=== PATIENT | female | born 1935 | race Caucasian/White ===

== ENCOUNTER 2022-01-28 14:38 | Inpatient (IN) | payer OTHER, BC ==
[2022-01-28] MEDS ORDERED: methylPREDNISolone NA SUCC 125 MG/2 ML VIAL IVPUSH ONE (15:29)
[2022-01-28] MEDS ORDERED: ALBUTEROL SO4 2.5/IPRATROPIUM 0.5 INH SOL 3 ML VIAL.NEB. NEB ONE ×3 (16:00→20:57)
[2022-01-28] MEDS ORDERED: methylPREDNISolone NA SUCC 125 MG/2 ML VIAL ONE (16:01)
[2022-01-28] MEDS: ALBUTEROL SO4 2.5/IPRATROPIUM 0.5 INH SOL 3 ML VIAL.NEB. NEB SCH ×3 (16:06→16:36)
[2022-01-28 16:23] LABS: BASO % 0.4 % (0-2.0); HEMATOCRIT 47.1 % (32.4-45.2); HEMOGLOBIN 15.2 GM/dL (10.7-15.3); LYMPH % 8.8 % (8-40); MCH 31.2 pg (25.7-33.7); MCHC 32.3 g/dl (32.0-36.0); MEAN CELL VOLUME 96.5 fl (80-96); MEAN PLT VOLUME 8.7 fl (7.5-11.1); MONO % 9.5 % (3.8-10.2); NEUT % 80.3 % (42.8-82.8); PLATELET COUNT 287 10^3/uL (134-434); RBC 4.88 M/mm3 (3.60-5.2); RDW 13.7 % (11.6-15.6); WHITE BLOOD COUNT 15.5 K/mm3 (4.0-10.0)
[2022-01-28 16:34] LABS: INR 0.91 (0.83-1.09); PROTHROMBIN TIME (PATIENT) 10.4 SEC (9.7-13.0)
[2022-01-28] MEDS ORDERED: guaiFENesin/D-M SUGAR-FREE/ACLHOL-FREE 118 ML BOTTLE PO ONE ×2 (16:35→21:54)
[2022-01-28 16:37] LABS: ACTIVATED PTT 26.5 SECONDS (25.2-36.5)
[2022-01-28 17:03] LABS: BLOOD UREA NITROGEN 24.6 mg/dL (7-18); CALCIUM 10.3 mg/dL (8.5-10.1)
[2022-01-28 17:05] LABS: CREATININE 0.9 mg/dL (0.55-1.3)
[2022-01-28 17:07] LABS: BILIRUBIN,TOTAL 0.5 mg/dL (0.2-1); TOT PROT 7.2 g/dl (6.4-8.2)
[2022-01-28] MEDS ORDERED: SODIUM CHLORIDE 0.9% 500 ML INFUS.BAG IV ONE (17:26)
[2022-01-28] MEDS ORDERED: BENZOCAINE/MENTHOL 1 EACH LOZENGE MM PRN (21:54)
[2022-01-28] MEDS ORDERED: PHENOL 177 ML SPRAY BOTTLE MM PRN (23:17)
[2022-01-28] MEDS ORDERED: NYSTATIN POWDER 100,000 UNITS/GM - 15 GM TOPICAL POWDER TP PRN (23:19)
[2022-01-28] MEDS ORDERED: ALBUTEROL SO4 HFA INHALER IH ONE (23:22)
[2022-01-28] MEDS: ALBUTEROL SO4 HFA INHALER IH PRN (23:25)
[2022-01-29] MEDS: ALBUTEROL SO4 HFA INHALER IH PRN (03:30)
[2022-01-29 04:34] VITALS: BMI 28.2
[2022-01-29] MEDS ORDERED: VALSARTAN 40 MG TABLET PO SCH ×2 (06:00→10:00)
[2022-01-29 09:09] LABS: BASO % 0.2 % (0-2.0); EOS % 0.6 % (0-4.5); HEMATOCRIT 42.1 % (32.4-45.2); HEMOGLOBIN 13.7 GM/dL (10.7-15.3); LYMPH % 7.8 % (8-40); MCH 31.2 pg (25.7-33.7); MCHC 32.5 g/dl (32.0-36.0); MEAN CELL VOLUME 95.9 fl (80-96); MEAN PLT VOLUME 8.3 fl (7.5-11.1); MONO % 9.4 % (3.8-10.2); PLATELET COUNT 248 10^3/uL (134-434); RBC 4.39 M/mm3 (3.60-5.2); RDW 13.2 % (11.6-15.6); WHITE BLOOD COUNT 12.7 K/mm3 (4.0-10.0)
[2022-01-29 09:30] LABS: CALCIUM 9.5 mg/dL (8.5-10.1)
[2022-01-29 09:32] LABS: MAGNESIUM 2.3 mg/dL (1.8-2.4)
[2022-01-29] MEDS ORDERED: AZITHROMYCIN IVPB 500 MG/250 ML BAG IVPB ONE (09:32)
[2022-01-29 09:34] LABS: CREATININE 0.6 mg/dL (0.55-1.3)
[2022-01-29 09:55] LABS: PHOSPHOROUS 2.5 mg/dL (2.5-4.9)
[2022-01-29 09:59] LABS: N-TERMINAL BNP 446.5 pg/ml (5-450)
[2022-01-29] MEDS: BUDESONIDE/FORMETEROL FUMARATE 160/4.5 mcg INHALER IH SCH ×2 (10:21→22:16)
[2022-01-29] MEDS: MONTELUKAST NA 10 MG TABLET PO SCH (10:23)
[2022-01-29] MEDS: PANTOPRAZOLE 40 MG TABLET PO SCH (10:23)
[2022-01-29] MEDS: amLODIPine BESYLATE 5 MG TABLET (FP) PO SCH (10:23)
[2022-01-29] MEDS: methylPREDNISolone NA SUCC 40 MG/1 ML VIAL IVPUSH SCH ×2 (10:23→17:14)
[2022-01-29] MEDS: LOSARTAN POTASSIUM 50 MG TABLET PO SCH (10:23)
[2022-01-29] MEDS: ENOXAPARIN NA (PORCINE) 40 MG/0.4 ML DISP.SYRIN SQ SCH (10:24)
[2022-01-29] MEDS: ALBUTEROL SO4 2.5/IPRATROPIUM 0.5 INH SOL 3 ML VIAL.NEB. NEB SCH ×3 (12:00→19:42)
[2022-01-29] MEDS: DOCUSATE SODIUM 100 MG CAPSULE (FP) PO SCH (22:44)
[2022-01-30] MEDS: methylPREDNISolone NA SUCC 40 MG/1 ML VIAL IVPUSH SCH ×3 (01:46→17:35)
[2022-01-30] MEDS: guaiFENesin/D-M SUGAR-FREE/ACLHOL-FREE 118 ML BOTTLE PO PRN ×2 (06:47→15:09)
[2022-01-30] MEDS: ALBUTEROL SO4 2.5/IPRATROPIUM 0.5 INH SOL 3 ML VIAL.NEB. NEB SCH ×4 (07:31→20:10)
[2022-01-30] MEDS: LOSARTAN POTASSIUM 50 MG TABLET PO SCH (09:08)
[2022-01-30] MEDS: amLODIPine BESYLATE 5 MG TABLET (FP) PO SCH (09:08)
[2022-01-30] MEDS: ACETAMINOPHEN 325 MG TABLET (FP) PO PRN ×2 (09:08→14:56)
[2022-01-30] MEDS: MONTELUKAST NA 10 MG TABLET PO SCH (09:10)
[2022-01-30] MEDS: PANTOPRAZOLE 40 MG TABLET PO SCH (09:10)
[2022-01-30] MEDS: ENOXAPARIN NA (PORCINE) 40 MG/0.4 ML DISP.SYRIN SQ SCH (09:10)
[2022-01-30] MEDS: BUDESONIDE/FORMETEROL FUMARATE 160/4.5 mcg INHALER IH SCH ×2 (09:14→21:13)
[2022-01-30] MEDS: AZITHROMYCIN IVPB 500 MG/250 ML BAG IVPB SCH (09:20)
[2022-01-30 10:22] LABS: BASO % 0.1 % (0-2.0); HEMOGLOBIN 14.7 GM/dL (10.7-15.3); LYMPH % 4.6 % (8-40); MCH 30.9 pg (25.7-33.7); MCHC 31.9 g/dl (32.0-36.0); MEAN CELL VOLUME 96.7 fl (80-96); MEAN PLT VOLUME 8.6 fl (7.5-11.1); MONO % 7.2 % (3.8-10.2); NEUT % 88.1 % (42.8-82.8); PLATELET COUNT 285 10^3/uL (134-434); RBC 4.76 M/mm3 (3.60-5.2); RDW 13.4 % (11.6-15.6)
[2022-01-30 10:44] LABS: BLOOD UREA NITROGEN 23.5 mg/dL (7-18); CALCIUM 10.4 mg/dL (8.5-10.1)
[2022-01-30 10:49] LABS: CREATININE 0.9 mg/dL (0.55-1.3)
[2022-01-30] MEDS: POLYETHYLENE GLYCOL (HEALTHYLAX) 3350 17 GM PACKET PO PRN (14:56)
[2022-01-30 16:10] LABS: SARS-CoV-2 NAA Not Detected (Not Detected)
[2022-01-30] MEDS: INSULIN SLIDING SCALE (NOVOLOG) 1 VIAL SQ SCH (16:39)
[2022-01-30] MEDS: DOCUSATE SODIUM 100 MG CAPSULE (FP) PO SCH (21:12)
[2022-01-31] MEDS: methylPREDNISolone NA SUCC 40 MG/1 ML VIAL IVPUSH SCH ×3 (02:03→17:10)
[2022-01-31] MEDS: INSULIN SLIDING SCALE (NOVOLOG) 1 VIAL SQ SCH ×3 (06:18→16:31)
[2022-01-31] MEDS: ALBUTEROL SO4 2.5/IPRATROPIUM 0.5 INH SOL 3 ML VIAL.NEB. NEB SCH ×4 (08:13→19:41)
[2022-01-31 08:56] LABS: BASO % 0.1 % (0-2.0); HEMATOCRIT 45.1 % (32.4-45.2); HEMOGLOBIN 14.6 GM/dL (10.7-15.3); LYMPH % 4.7 % (8-40); MCH 31.1 pg (25.7-33.7); MCHC 32.4 g/dl (32.0-36.0); MEAN PLT VOLUME 8.4 fl (7.5-11.1); MONO % 6.8 % (3.8-10.2); NEUT % 88.4 % (42.8-82.8); PLATELET COUNT 288 10^3/uL (134-434); RDW 13.3 % (11.6-15.6); WHITE BLOOD COUNT 13.1 K/mm3 (4.0-10.0)
[2022-01-31 09:34] LABS: CALCIUM 10.3 mg/dL (8.5-10.1)
[2022-01-31 09:35] LABS: BLOOD UREA NITROGEN 26.5 mg/dL (7-18)
[2022-01-31 09:38] LABS: CREATININE 0.8 mg/dL (0.55-1.3)
[2022-01-31] MEDS: amLODIPine BESYLATE 5 MG TABLET (FP) PO SCH (10:06)
[2022-01-31] MEDS: ENOXAPARIN NA (PORCINE) 40 MG/0.4 ML DISP.SYRIN SQ SCH (10:06)
[2022-01-31] MEDS: PANTOPRAZOLE 40 MG TABLET PO SCH (10:06)
[2022-01-31] MEDS: LOSARTAN POTASSIUM 50 MG TABLET PO SCH (10:06)
[2022-01-31] MEDS: MONTELUKAST NA 10 MG TABLET PO SCH (10:06)
[2022-01-31] MEDS: BUDESONIDE/FORMETEROL FUMARATE 160/4.5 mcg INHALER IH SCH ×2 (10:07→21:31)
[2022-01-31] MEDS: AZITHROMYCIN IVPB 500 MG/250 ML BAG IVPB SCH (10:07)
[2022-01-31] MEDS: POLYETHYLENE GLYCOL (HEALTHYLAX) 3350 17 GM PACKET PO PRN (10:10)
[2022-01-31] MEDS: DOCUSATE SODIUM 100 MG CAPSULE (FP) PO SCH (21:28)
[2022-02-01] MEDS: methylPREDNISolone NA SUCC 40 MG/1 ML VIAL IVPUSH SCH ×3 (01:26→21:07)
[2022-02-01] MEDS: INSULIN SLIDING SCALE (NOVOLOG) 1 VIAL SQ SCH ×3 (06:31→16:33)
[2022-02-01] MEDS: ALBUTEROL SO4 2.5/IPRATROPIUM 0.5 INH SOL 3 ML VIAL.NEB. NEB SCH ×4 (08:20→20:15)
[2022-02-01] MEDS: AZITHROMYCIN IVPB 500 MG/250 ML BAG IVPB SCH (09:41)
[2022-02-01] MEDS: MONTELUKAST NA 10 MG TABLET PO SCH (09:43)
[2022-02-01] MEDS: LOSARTAN POTASSIUM 50 MG TABLET PO SCH (09:43)
[2022-02-01] MEDS: amLODIPine BESYLATE 5 MG TABLET (FP) PO SCH (09:43)
[2022-02-01] MEDS: ENOXAPARIN NA (PORCINE) 40 MG/0.4 ML DISP.SYRIN SQ SCH ×2 (09:43→11:51)
[2022-02-01] MEDS: PANTOPRAZOLE 40 MG TABLET PO SCH (09:43)
[2022-02-01] MEDS: BUDESONIDE/FORMETEROL FUMARATE 160/4.5 mcg INHALER IH SCH ×2 (09:46→21:16)
[2022-02-01] MEDS: POLYETHYLENE GLYCOL (HEALTHYLAX) 3350 17 GM PACKET PO PRN ×2 (11:31→21:05)
[2022-02-01] MEDS: ACETAMINOPHEN 325 MG TABLET (FP) PO PRN (21:04)
[2022-02-01] MEDS: DOCUSATE SODIUM 100 MG CAPSULE (FP) PO SCH (21:05)
[2022-02-02] MEDS: INSULIN SLIDING SCALE (NOVOLOG) 1 VIAL SQ SCH ×3 (06:49→16:48)
[2022-02-02] MEDS: ALBUTEROL SO4 2.5/IPRATROPIUM 0.5 INH SOL 3 ML VIAL.NEB. NEB SCH ×4 (08:29→20:22)
[2022-02-02] MEDS: LOSARTAN POTASSIUM 50 MG TABLET PO SCH (10:45)
[2022-02-02] MEDS: PANTOPRAZOLE 40 MG TABLET PO SCH (10:45)
[2022-02-02] MEDS: MONTELUKAST NA 10 MG TABLET PO SCH (10:45)
[2022-02-02] MEDS: amLODIPine BESYLATE 5 MG TABLET (FP) PO SCH (10:45)
[2022-02-02] MEDS: ENOXAPARIN NA (PORCINE) 40 MG/0.4 ML DISP.SYRIN SQ SCH (10:45)
[2022-02-02] MEDS: BUDESONIDE/FORMETEROL FUMARATE 160/4.5 mcg INHALER IH SCH ×2 (10:46→21:14)
[2022-02-02] MEDS: methylPREDNISolone NA SUCC 40 MG/1 ML VIAL IVPUSH SCH ×2 (10:46→21:13)
[2022-02-02] MEDS: POLYETHYLENE GLYCOL (HEALTHYLAX) 3350 17 GM PACKET PO PRN (10:58)
[2022-02-02] MEDS: guaiFENesin/D-M SUGAR-FREE/ACLHOL-FREE 118 ML BOTTLE PO PRN (10:58)
[2022-02-02 13:57] LABS: HEMATOCRIT 48.7 % (32.4-45.2); HEMOGLOBIN 15.6 GM/dL (10.7-15.3); MCHC 32.1 g/dl (32.0-36.0); MEAN CELL VOLUME 96.8 fl (80-96); PLATELET COUNT 332 10^3/uL (134-434); RBC 5.03 M/mm3 (3.60-5.2); RDW 13.5 % (11.6-15.6); WHITE BLOOD COUNT 14.2 K/mm3 (4.0-10.0)
[2022-02-02] MEDS: AZITHROMYCIN IVPB 500 MG/250 ML BAG IVPB SCH (14:07)
[2022-02-02 14:13] LABS: CALCIUM 10.7 mg/dL (8.5-10.1)
[2022-02-02 14:16] LABS: CREATININE 0.9 mg/dL (0.55-1.3)
[2022-02-02 14:54] LABS: ANISOCYTOSIS 1+; MACROCYTOSIS 0
[2022-02-02] MEDS: DOCUSATE SODIUM 100 MG CAPSULE (FP) PO SCH (21:13)
[2022-02-03] MEDS: INSULIN SLIDING SCALE (NOVOLOG) 1 VIAL SQ SCH ×3 (06:13→16:23)
[2022-02-03] MEDS: ALBUTEROL SO4 2.5/IPRATROPIUM 0.5 INH SOL 3 ML VIAL.NEB. NEB SCH ×4 (07:15→20:26)
[2022-02-03] MEDS: ENOXAPARIN NA (PORCINE) 40 MG/0.4 ML DISP.SYRIN SQ SCH (09:49)
[2022-02-03] MEDS: amLODIPine BESYLATE 5 MG TABLET (FP) PO SCH (09:50)
[2022-02-03] MEDS: LOSARTAN POTASSIUM 50 MG TABLET PO SCH (09:50)
[2022-02-03] MEDS: guaiFENesin/D-M SUGAR-FREE/ACLHOL-FREE 118 ML BOTTLE PO PRN (09:50)
[2022-02-03] MEDS: PANTOPRAZOLE 40 MG TABLET PO SCH (09:50)
[2022-02-03] MEDS: MONTELUKAST NA 10 MG TABLET PO SCH (09:50)
[2022-02-03] MEDS: POLYETHYLENE GLYCOL (HEALTHYLAX) 3350 17 GM PACKET PO PRN (09:51)
[2022-02-03] MEDS: methylPREDNISolone NA SUCC 40 MG/1 ML VIAL IVPUSH SCH ×2 (09:51→21:06)
[2022-02-03] MEDS: BUDESONIDE/FORMETEROL FUMARATE 160/4.5 mcg INHALER IH SCH ×2 (09:52→21:07)
[2022-02-03] MEDS ORDERED: CEFTRIAXONE 1 GM in DEXTROSE 5%-WATER - 50 ML IVPB SCH (14:45)
[2022-02-03] MEDS ORDERED: cefTRIAXone SODIUM 1 GM VIAL ONE (14:47)
[2022-02-03] MEDS: CEFTRIAXONE 1 GM in DEXTROSE 5%-WATER - 50 ML IVPB SCH (14:49)
[2022-02-03] MEDS: DOCUSATE SODIUM 100 MG CAPSULE (FP) PO SCH (21:06)
[2022-02-04] MEDS: INSULIN SLIDING SCALE (NOVOLOG) 1 VIAL SQ SCH ×2 (06:29→11:29)
[2022-02-04] MEDS ORDERED: MELATONIN 5 MG TABLETS PO PRN (08:46)
[2022-02-04] MEDS: ALBUTEROL SO4 2.5/IPRATROPIUM 0.5 INH SOL 3 ML VIAL.NEB. NEB SCH ×3 (09:01→15:52)
[2022-02-04] MEDS ORDERED: cefTRIAXone SODIUM 1 GM VIAL ONE (09:07)
[2022-02-04] MEDS ORDERED: DEXTROSE 5%-WATER - 50 ML IVPB ONE (09:08)
[2022-02-04 09:35] VITALS: TEMP 97.9
[2022-02-04] MEDS: CEFTRIAXONE 1 GM in DEXTROSE 5%-WATER - 50 ML IVPB SCH (09:36)
[2022-02-04] MEDS: LOSARTAN POTASSIUM 50 MG TABLET PO SCH (09:36)
[2022-02-04] MEDS: PANTOPRAZOLE 40 MG TABLET PO SCH (09:36)
[2022-02-04] MEDS: ENOXAPARIN NA (PORCINE) 40 MG/0.4 ML DISP.SYRIN SQ SCH (09:36)
[2022-02-04] MEDS: amLODIPine BESYLATE 5 MG TABLET (FP) PO SCH (09:36)
[2022-02-04] MEDS: MONTELUKAST NA 10 MG TABLET PO SCH (09:36)
[2022-02-04] MEDS: methylPREDNISolone NA SUCC 40 MG/1 ML VIAL IVPUSH SCH (09:36)
[2022-02-04] MEDS: BUDESONIDE/FORMETEROL FUMARATE 160/4.5 mcg INHALER IH SCH (09:39)
[2022-02-04] MEDS: guaiFENesin/D-M SUGAR-FREE/ACLHOL-FREE 118 ML BOTTLE PO PRN (10:00)
[2022-02-04] MEDS: POLYETHYLENE GLYCOL (HEALTHYLAX) 3350 17 GM PACKET PO PRN (10:00)
[2022-02-04 10:04] LABS: BASO % 0.1 % (0-2.0); EOS % 0.3 % (0-4.5); HEMOGLOBIN 15.7 GM/dL (10.7-15.3); LYMPH % 16.7 % (8-40); MCH 30.9 pg (25.7-33.7); MCHC 32.6 g/dl (32.0-36.0); MEAN CELL VOLUME 94.7 fl (80-96); MEAN PLT VOLUME 8.3 fl (7.5-11.1); MONO % 7.6 % (3.8-10.2); NEUT % 75.3 % (42.8-82.8); PLATELET COUNT 299 10^3/uL (134-434); RBC 5.06 M/mm3 (3.60-5.2); RDW 13.5 % (11.6-15.6); WHITE BLOOD COUNT 11.6 K/mm3 (4.0-10.0)
[2022-02-04 10:32] LABS: ALBUMIN 3.3 g/dl (3.4-5.0); BLOOD UREA NITROGEN 23.8 mg/dL (7-18)
[2022-02-04 10:35] LABS: CREATININE 0.7 mg/dL (0.55-1.3)
[2022-02-04 10:36] LABS: BILIRUBIN,TOTAL 0.5 mg/dL (0.2-1); TOT PROT 6.1 g/dl (6.4-8.2)
[2022-02-04 14:31] VITALS: BP 128/96; PULSE 81
== END 2022-02-04 16:26 | disposition home or self-care (01) | DRG 202 ==
LOC: JER 14:38 → JERBED 19:59 → J6S 01-29 02:56
PROVIDERS: ADMIT Hospitalist; ATTEND Internal Medicine
DX: J45.901 Unspecified asthma with (acute) exacerbation (principal); J98.11 Atelectasis; J20.9 Acute bronchitis, unspecified; I10 Essential (primary) hypertension
CPT/HCPCS: 0241U-QW; 36415; 71045-TC-FY; 71046-TC-FY; 80048; 80053; 83036; 83735; 83880; 84100; 85025; 85610; 85730; 87070; 87205; 93005; 93010; 94010; 94640; 94761; 99285-25; C9803-CS; U0003; U0005

== ENCOUNTER 2022-03-29 08:55 | Emergency (ER) | payer OTHER, BC ==
[2022-03-29 09:13] VITALS: TEMP 97.8; BMI 27.4
[2022-03-29] MEDS ORDERED: ACETAMINOPHEN 325 MG TABLET (FP) PO ONE (11:15)
[2022-03-29] MEDS ORDERED: SODIUM CHLORIDE 500 ML IV STA (11:18)
[2022-03-29 11:49] LABS: BASO % 0.8 % (0-2.0); HEMATOCRIT 45.4 % (32.4-45.2); HEMOGLOBIN 14.9 GM/dL (10.7-15.3); LYMPH % 17.7 % (8-40); MCH 31.7 pg (25.7-33.7); MCHC 32.9 g/dl (32.0-36.0); MEAN CELL VOLUME 96.3 fl (80-96); MEAN PLT VOLUME 8.1 fl (7.5-11.1); MONO % 9.3 % (3.8-10.2); NEUT % 70.2 % (42.8-82.8); PLATELET COUNT 237 10^3/uL (134-434); RBC 4.71 M/mm3 (3.60-5.2); RDW 13.7 % (11.6-15.6); WHITE BLOOD COUNT 7.7 K/mm3 (4.0-10.0)
[2022-03-29 12:21] LABS: ALBUMIN 3.9 g/dl (3.4-5.0); BLOOD UREA NITROGEN 13.5 mg/dL (7-18); CALCIUM 10.6 mg/dL (8.5-10.1)
[2022-03-29 12:24] LABS: CREATININE 0.6 mg/dL (0.55-1.3)
[2022-03-29 12:26] LABS: BILIRUBIN,TOTAL 0.8 mg/dL (0.2-1); TOT PROT 6.7 g/dl (6.4-8.2)
[2022-03-29] MEDS ORDERED: ALBUTEROL SO4 2.5/IPRATROPIUM 0.5 INH SOL 3 ML VIAL.NEB. NEB SCH ×3 (12:39→14:00)
[2022-03-29] MEDS ORDERED: ALBUTEROL SO4 2.5/IPRATROPIUM 0.5 INH SOL 3 ML VIAL.NEB. NEB ONE (12:42)
[2022-03-29 14:14] LABS: EPI CELLS 29 /uL (0-25.1); HYALINE CASTS 2 /uL (0-3.1); URINE APPEARANCE CLEAR; URINE BACTERIA 21 /uL (0-1359); URINE BILIRUBIN NEGATIVE (NEGATIVE); URINE COLOR YELLOW; URINE GLUCOSE (UA) NEGATIVE (NEGATIVE); URINE KETONE NEGATIVE (NEGATIVE); URINE LEUK ESTERASE TRACE (NEGATIVE); URINE NITRITE NEGATIVE (NEGATIVE); URINE PROTEIN NEGATIVE (NEGATIVE); URINE RBC 6 /uL (0-23.9); URINE UROBILINOGEN 0.2 mg/dL (0.2-1.0); URINE WBC 20 /uL (0-25.8)
[2022-03-29 14:38] LABS: VENOUS BASE EXCESS -0.9 mmol/L (-2-2); VENOUS O2 SATURATION 40.3 % (70-80); VENOUS PCO2 50.3 mmHg (38-52); VENOUS PH 7.328 (7.310-7.410)
[2022-03-29 17:26] VITALS: BP 128/87; PULSE 84
== END 2022-03-29 17:44 | disposition home or self-care (01) ==
LOC: JER 08:55
PROC: 3E0337Z Introduction of Electrolytic and Water Balance Substance into Peripheral Vein, Percutaneous Approach (ICD-10-PCS; principal; 2022-03-29)
PROC: 3E0F7GC Introduction of Other Therapeutic Substance into Respiratory Tract, Via Natural or Artificial Opening (ICD-10-PCS; 2022-03-29)
DX: R10.84 Generalized abdominal pain (principal); K59.00 Constipation, unspecified
CPT/HCPCS: 0241U-QW; 36415; 71045-TC-FY; 74177-TC; 80053; 81003; 82803; 83605; 83690; 84484; 85025; 93005; 93010; 99285-25

== ENCOUNTER 2023-09-28 08:12 | Emergency (ER) | payer OTHER, BC ==
[2023-09-28 08:26] VITALS: BMI 28.1
[2023-09-28] MEDS ORDERED: ALBUTEROL SO4 2.5/IPRATROPIUM 0.5 INH SOL 3 ML VIAL.NEB. NEB ONE ×2 (08:58→10:34)
[2023-09-28] MEDS: ALBUTEROL SO4 2.5/IPRATROPIUM 0.5 INH SOL 3 ML VIAL.NEB. NEB SCH ×4 (09:03→09:50)
[2023-09-28] MEDS ORDERED: methylPREDNISolone NA SUCC 125 MG/2 ML VIAL IVPUSH ONE (09:17)
[2023-09-28] MEDS ORDERED: methylPREDNISolone NA SUCC 125 MG/2 ML VIAL ONE (09:28)
[2023-09-28 09:36] LABS: BASO % 0.9 % (0-2.0); EOS % 2.7 % (0-4.5); HEMATOCRIT 43.4 % (32.4-45.2); HEMOGLOBIN 14.1 GM/dL (10.7-15.3); LYMPH % 20.4 % (8-40); MCHC 32.5 g/dl (32.0-36.0); MEAN CELL VOLUME 95.4 fl (80-96); MEAN PLT VOLUME 7.9 fl (7.5-11.1); MONO % 10.7 % (3.8-10.2); NEUT % 65.3 % (42.8-82.8); PLATELET COUNT 290 10^3/uL (134-434); RBC 4.55 M/mm3 (3.60-5.2); RDW 13.4 % (11.6-15.6); WHITE BLOOD COUNT 6.9 K/mm3 (4.0-10.0)
[2023-09-28 09:38] LABS: INR 1.02 (0.83-1.09); PROTHROMBIN TIME (PATIENT) 11.8 SEC (9.7-13.0)
[2023-09-28 09:40] LABS: ACTIVATED PTT 30.9 SECONDS (25.2-36.5)
[2023-09-28 09:56] LABS: POTASSIUM 5.1 mmol/L (3.5-5.1)
[2023-09-28 09:59] LABS: ALBUMIN 3.2 g/dl (3.4-5.0); BLOOD UREA NITROGEN 14.2 mg/dL (7-18); MAGNESIUM 2.2 mg/dL (1.8-2.4); VENOUS BASE EXCESS 2.9 mmol/L (-2-2); VENOUS PCO2 54.1 mmHg (38-52); VENOUS PH 7.357 (7.310-7.410)
[2023-09-28 10:02] LABS: CREATININE 0.6 mg/dL (0.55-1.3)
[2023-09-28 10:04] LABS: BILIRUBIN,TOTAL 0.5 mg/dL (0.2-1); TOT PROT 6.2 g/dl (6.4-8.2)
[2023-09-28 11:37] LABS: EPI CELLS >36 /uL (0-25.1); HYALINE CASTS 1 /uL (0-3.1); PH,URINE 7.5 (5.0-8.0); URINE APPEARANCE CLEAR; URINE BACTERIA 319 /uL (0-1359); URINE BILIRUBIN NEGATIVE (NEGATIVE); URINE COLOR YELLOW; URINE GLUCOSE (UA) NEGATIVE (NEGATIVE); URINE KETONE TRACE (NEGATIVE); URINE LEUK ESTERASE TRACE (NEGATIVE); URINE NITRITE NEGATIVE (NEGATIVE); URINE PROTEIN NEGATIVE (NEGATIVE); URINE RBC 11 /uL (0-23.9); URINE UROBILINOGEN 0.2 mg/dL (0.2-1.0); URINE WBC 13 /uL (0-25.8)
[2023-09-28 12:11] VITALS: BP 138/59; PULSE 59; RESP 18; TEMP 98.7
== END 2023-09-28 12:12 | disposition home or self-care (01) ==
LOC: JER 08:12
PROC: 3E033GC Introduction of Other Therapeutic Substance into Peripheral Vein, Percutaneous Approach (ICD-10-PCS; principal; 2023-09-28)
PROC: 3E0F7GC Introduction of Other Therapeutic Substance into Respiratory Tract, Via Natural or Artificial Opening (ICD-10-PCS; 2023-09-28)
DX: R07.9 Chest pain, unspecified (principal); R00.2 Palpitations; R06.02 Shortness of breath; R35.0 Frequency of micturition; J45.901 Unspecified asthma with (acute) exacerbation; Z20.822 Contact with and (suspected) exposure to COVID-19
CPT/HCPCS: 0241U-QW; 36415; 71045-TC-FY; 80053; 81003; 82803; 83735; 84439; 84443; 84484; 85025; 85610; 85730; 87086; 93005; 93010; 99285-25

== ENCOUNTER 2023-12-27 10:43 | Inpatient (IN) | payer OTHER, BC ==
[2023-12-27] MEDS ORDERED: ALBUTEROL SO4 2.5/IPRATROPIUM 0.5 INH SOL 3 ML VIAL.NEB. NEB ONE ×2 (11:41→21:10)
[2023-12-27] MEDS: ALBUTEROL SO4 2.5/IPRATROPIUM 0.5 INH SOL 3 ML VIAL.NEB. NEB SCH (11:48)
[2023-12-27 13:35] LABS: HEMOGLOBIN 14.3 GM/dL (10.7-15.3); MCH 30.5 pg (25.7-33.7); MCHC 32.5 g/dl (32.0-36.0); MEAN PLT VOLUME 7.8 fl (7.5-11.1); PLATELET COUNT 277 10^3/uL (134-434); RBC 4.68 M/mm3 (3.60-5.2); RDW 13.9 % (11.6-15.6); WHITE BLOOD COUNT 8.6 K/mm3 (4.0-10.0)
[2023-12-27] MEDS ORDERED: MELATONIN 5 MG TABLETS PO PRN (13:40)
[2023-12-27] MEDS ORDERED: PANTOPRAZOLE 40 MG TABLET PO ONE (13:56)
[2023-12-27] MEDS ORDERED: HEPARIN NA (PORCINE) 5,000 UNITS/ML 1ML VIAL ONE ×2 (13:57→21:09)
[2023-12-27 13:58] LABS: ALBUMIN 3.7 g/dl (3.4-5.0); BLOOD UREA NITROGEN 13.4 mg/dL (7-18); CALCIUM 10.4 mg/dL (8.5-10.1)
[2023-12-27 14:01] LABS: CREATININE 0.8 mg/dL (0.55-1.3)
[2023-12-27 14:03] LABS: BILIRUBIN,TOTAL 0.4 mg/dL (0.2-1); TOT PROT 6.8 g/dl (6.4-8.2)
[2023-12-27 14:04] LABS: ANISOCYTOSIS 0; HELMET CELLS 0; HOWELL-JOLLY BODIES 0; MACROCYTOSIS 0; OVALOCYTE 0; ROULEAU 0; SICKELED CELLS 0; TARGET CELLS 0; TEAR DROP CELLS 0; TOXIC GRANULATION 0
[2023-12-27 14:06] LABS: N-TERMINAL BNP 585.4 pg/ml (5-450)
[2023-12-27] MEDS: HEPARIN NA (PORCINE) 5,000 UNITS/ML 1ML VIAL SQ SCH (14:16)
[2023-12-27] MEDS: guaiFENesin 600 MG TABLET.ER (FP) PO SCH (14:16)
[2023-12-27] MEDS: PANTOPRAZOLE 40 MG TABLET PO SCH (14:17)
[2023-12-27] MEDS: D5-1/2NS+10 MEQ KCL - 10 MEQ/1,000 ML INFUS.BAG IV SCH (14:56)
[2023-12-27] MEDS: NYSTATIN POWDER 100,000 UNITS/GM - 15 GM TOPICAL POWDER TP SCH (14:56)
[2023-12-27] MEDS ORDERED: AZITHROMYCIN 250 MG TABLET ONE (21:09)
[2023-12-27] MEDS ORDERED: ACETAMINOPHEN 325 MG TABLET (FP) ONE (21:19)
[2023-12-27] MEDS: ACETAMINOPHEN 325 MG TABLET (FP) PO ONE (21:32)
[2023-12-27] MEDS: AZITHROMYCIN 250 MG TABLET PO ONE (21:32)
[2023-12-28] MEDS: BENZOCAINE/MENTH/CETYLPYRD CL 1 EACH LOZENGE MM PRN (01:46)
[2023-12-28] MEDS: ALBUTEROL SO4 2.5/IPRATROPIUM 0.5 INH SOL 3 ML VIAL.NEB. NEB PRN (02:17)
[2023-12-28 03:45] VITALS: BMI 29.2
[2023-12-28] MEDS: methylPREDNISolone NA SUCC 125 MG/2 ML VIAL IVPB SCH (09:12)
[2023-12-28] MEDS: LOSARTAN POTASSIUM 50 MG TABLET PO SCH (09:16)
[2023-12-28] MEDS: amLODIPine BESYLATE 10 MG TABLET (FP) PO SCH (09:16)
[2023-12-28] MEDS: MONTELUKAST NA 10 MG TABLET PO SCH (09:17)
[2023-12-28] MEDS: metoPROLOL SUCCINATE 25 MG TAB.SR.24H (FP) PO SCH (09:48)
[2023-12-28] MEDS: APIXABAN 5 MG TABLET PO SCH (09:48)
[2023-12-28] MEDS ORDERED: VALSARTAN 40 MG TABLET PO SCH (10:00)
[2023-12-28] MEDS: DOCUSATE SODIUM 100 MG CAPSULE (FP) PO PRN (12:15)
[2023-12-28] MEDS: ACETAMINOPHEN 325 MG TABLET (FP) PO PRN (13:34)
[2023-12-28] MEDS: D5-1/2NS+10 MEQ KCL - 10 MEQ/1,000 ML INFUS.BAG IV SCH (20:00)
[2023-12-28] MEDS: AZITHROMYCIN 250 MG TABLET PO ONE (21:47)
[2023-12-28] MEDS: methylPREDNISolone NA SUCC 40 MG/1 ML VIAL IVPB SCH (21:47)
[2023-12-29] MEDS: INSULIN ASPART SLIDING SCALE (NOVOLOG) 1 VIAL SQ SCH (07:25)
[2023-12-29 08:58] LABS: BASO % 0.1 % (0-2.0); HEMATOCRIT 43.8 % (32.4-45.2); HEMOGLOBIN 14.7 GM/dL (10.7-15.3); LYMPH % 10.9 % (8-40); MCH 31.5 pg (25.7-33.7); MCHC 33.5 g/dl (32.0-36.0); MEAN CELL VOLUME 94.2 fl (80-96); MEAN PLT VOLUME 8.2 fl (7.5-11.1); MONO % 9.5 % (3.8-10.2); NEUT % 79.5 % (42.8-82.8); PLATELET COUNT 309 10^3/uL (134-434); RBC 4.65 M/mm3 (3.60-5.2); RDW 13.4 % (11.6-15.6); WHITE BLOOD COUNT 7.1 K/mm3 (4.0-10.0)
[2023-12-29] MEDS: amLODIPine BESYLATE 5 MG TABLET (FP) PO SCH (09:16)
[2023-12-29 09:44] LABS: POTASSIUM 4.6 mmol/L (3.5-5.1)
[2023-12-29 09:50] LABS: CALCIUM 10.3 mg/dL (8.5-10.1)
[2023-12-29 09:54] LABS: CREATININE 0.7 mg/dL (0.55-1.3)
[2023-12-29] MEDS: BUDESONIDE/FORMETEROL FUMARATE 160/4.5 mcg INHALER IH SCH (13:26)
[2023-12-29] MEDS: ALBUTEROL SO4 2.5/IPRATROPIUM 0.5 INH SOL 3 ML VIAL.NEB. NEB SCH (15:49)
[2023-12-29] MEDS: POLYETHYLENE GLYCOL (HEALTHYLAX) 3350 17 GM PACKET PO PRN (18:06)
[2023-12-30 09:06] LABS: HEMATOCRIT 44.9 % (32.4-45.2); HEMOGLOBIN 14.7 GM/dL (10.7-15.3); LYMPH % 9.3 % (8-40); MCH 31.1 pg (25.7-33.7); MCHC 32.8 g/dl (32.0-36.0); MEAN PLT VOLUME 8.1 fl (7.5-11.1); MONO % 5.7 % (3.8-10.2); PLATELET COUNT 314 10^3/uL (134-434); RBC 4.73 M/mm3 (3.60-5.2); RDW 13.5 % (11.6-15.6); WHITE BLOOD COUNT 9.8 K/mm3 (4.0-10.0)
[2023-12-30 09:23] LABS: POTASSIUM 4.9 mmol/L (3.5-5.1)
[2023-12-30 09:26] LABS: CALCIUM 10.1 mg/dL (8.5-10.1)
[2023-12-30 09:27] LABS: BLOOD UREA NITROGEN 22.5 mg/dL (7-18)
[2023-12-30 09:30] LABS: CREATININE 0.8 mg/dL (0.55-1.3)
[2023-12-30] MEDS: MINERAL OIL ENEMA 133 ML ENEMA RC ONE (14:08)
[2023-12-30] MEDS: MAGNESIUM HYDROX 2400MG/30ML ORAL SUSPENSION 30 ML CUP PO ONE (14:14)
[2023-12-30] MEDS: DOCUSATE SODIUM 100 MG CAPSULE (FP) PO SCH (14:15)
[2023-12-30] MEDS: MINERAL OIL 30 ML UNIT-DOSE CUP PO ONE (14:16)
[2023-12-30] MEDS: LEVALBUTEROL HCL 0.63 MG/3 ML VIAL.NEB. IH SCH (18:37)
[2023-12-30] MEDS: POLYETHYLENE GLYCOL (HEALTHYLAX) 3350 17 GM PACKET PO SCH (21:44)
[2023-12-31] MEDS: D5-1/2NS+10 MEQ KCL - 10 MEQ/1,000 ML INFUS.BAG IV SCH (13:28)
[2023-12-31] MEDS: methylPREDNISolone NA SUCC 40 MG/1 ML VIAL IVPB SCH (21:39)
[2024-01-01 09:17] LABS: BASO % 0.3 % (0-2.0); EOS % 0.1 % (0-4.5); HEMATOCRIT 45.2 % (32.4-45.2); HEMOGLOBIN 14.9 GM/dL (10.7-15.3); LYMPH % 11.6 % (8-40); MCH 30.9 pg (25.7-33.7); MCHC 32.9 g/dl (32.0-36.0); MEAN CELL VOLUME 94.1 fl (80-96); MEAN PLT VOLUME 7.5 fl (7.5-11.1); MONO % 9.4 % (3.8-10.2); NEUT % 78.6 % (42.8-82.8); PLATELET COUNT 314 10^3/uL (134-434); RDW 13.5 % (11.6-15.6); WHITE BLOOD COUNT 11.2 K/mm3 (4.0-10.0)
[2024-01-01 09:37] LABS: POTASSIUM 4.7 mmol/L (3.5-5.1)
[2024-01-01 09:39] LABS: CALCIUM 9.8 mg/dL (8.5-10.1)
[2024-01-01 09:40] LABS: BLOOD UREA NITROGEN 23.7 mg/dL (7-18)
[2024-01-01 09:43] LABS: CREATININE 0.7 mg/dL (0.55-1.3)
[2024-01-01] MEDS ORDERED: methylPREDNISolone NA SUCC 40 MG/1 ML VIAL IVPB SCH (10:00)
[2024-01-01] MEDS: predniSONE 20 MG TABLET (UD) PO SCH (10:36)
[2024-01-01] MEDS ORDERED: methylPREDNISolone NA SUCC 40 MG/1 ML VIAL IVPUSH SCH (11:45)
[2024-01-01] MEDS: D5-1/2NS+10 MEQ KCL - 10 MEQ/1,000 ML INFUS.BAG IV SCH (12:59)
[2024-01-01] MEDS: methylPREDNISolone NA SUCC 40 MG/1 ML VIAL IVPUSH SCH (15:13)
[2024-01-02] MEDS ORDERED: SODIUM CHLORIDE NASAL SPRAY 44 ML BOTTLE NS PRN (11:05)
[2024-01-02] MEDS: methylPREDNISolone NA SUCC 40 MG/1 ML VIAL IVPUSH SCH (23:42)
[2024-01-03 09:18] LABS: BASO % 0.5 % (0-2.0); HEMATOCRIT 46.1 % (32.4-45.2); HEMOGLOBIN 15.3 GM/dL (10.7-15.3); LYMPH % 12.1 % (8-40); MCH 31.1 pg (25.7-33.7); MCHC 33.2 g/dl (32.0-36.0); MEAN CELL VOLUME 93.8 fl (80-96); MEAN PLT VOLUME 7.8 fl (7.5-11.1); MONO % 5.7 % (3.8-10.2); NEUT % 81.7 % (42.8-82.8); PLATELET COUNT 374 10^3/uL (134-434); RBC 4.92 M/mm3 (3.60-5.2); RDW 13.1 % (11.6-15.6); WHITE BLOOD COUNT 12.5 K/mm3 (4.0-10.0)
[2024-01-03 09:45] LABS: POTASSIUM 4.8 mmol/L (3.5-5.1)
[2024-01-03 09:54] LABS: BLOOD UREA NITROGEN 26.7 mg/dL (7-18)
[2024-01-03 09:56] LABS: CREATININE 0.8 mg/dL (0.55-1.3)
[2024-01-03] MEDS: methylPREDNISolone NA SUCC 40 MG/1 ML VIAL IVPUSH SCH (22:28)
[2024-01-04 09:18] LABS: BASO % 0.3 % (0-2.0); EOS % 0.1 % (0-4.5); HEMATOCRIT 47.9 % (32.4-45.2); LYMPH % 14.2 % (8-40); MCH 31.2 pg (25.7-33.7); MCHC 33.4 g/dl (32.0-36.0); MEAN CELL VOLUME 93.5 fl (80-96); MONO % 8.2 % (3.8-10.2); NEUT % 77.2 % (42.8-82.8); PLATELET COUNT 375 10^3/uL (134-434); RBC 5.12 M/mm3 (3.60-5.2); RDW 13.1 % (11.6-15.6); WHITE BLOOD COUNT 13.4 K/mm3 (4.0-10.0)
[2024-01-04 09:45] LABS: POTASSIUM 4.5 mmol/L (3.5-5.1)
[2024-01-04 09:57] LABS: BLOOD UREA NITROGEN 23.9 mg/dL (7-18); CALCIUM 10.5 mg/dL (8.5-10.1)
[2024-01-04 10:00] LABS: CREATININE 0.7 mg/dL (0.55-1.3)
[2024-01-04] MEDS: FLUTICASONE PROP 0.05% 16 GM NASAL SPRAY NS SCH (13:19)
[2024-01-04] MEDS: predniSONE 20 MG TABLET (UD) PO SCH (16:53)
[2024-01-05 14:55] VITALS: RESP 18
[2024-01-05] MEDS: ALBUTEROL SO4 0.083% IH SOL 2.5 MG/3 ML VIAL.NEB. NEB PRN (22:59)
[2024-01-06 07:02] VITALS: BP 112/65; PULSE 72; TEMP 98.2
== END 2024-01-06 13:27 | disposition home or self-care (01) | DRG 202 ==
LOC: JER 10:43 → JERBED 13:27 → J6S 12-28 00:01 → J8W 12-31 17:12
PROVIDERS: ADMIT Internal Medicine; ATTEND Nurse Practitioner Family
DX: J45.901 Unspecified asthma with (acute) exacerbation (principal); J12.3 Human metapneumovirus pneumonia; I48.92 Unspecified atrial flutter; M62.81 Muscle weakness (generalized); I10 Essential (primary) hypertension; I48.91 Unspecified atrial fibrillation; E78.5 Hyperlipidemia, unspecified; R09.02 Hypoxemia; J20.9 Acute bronchitis, unspecified; E83.52 Hypercalcemia; K59.00 Constipation, unspecified
CPT/HCPCS: 0241U-QW; 36415; 71045-TC-FY; 71046-TC-FY; 71250-TC; 80048; 80053; 82550; 82803; 82962; 83735; 83880; 84484; 85025; 85610; 85730; 87633; 87635; 93005; 93010; 94640; 94761; 97116-GP; 97162-GP; 99285-25; J0131; J1644

== ENCOUNTER 2024-01-24 08:16 | Inpatient (IN) | payer OTHER, BC ==
[2024-01-24] MEDS ORDERED: ALBUTEROL SO4 2.5/IPRATROPIUM 0.5 INH SOL 3 ML VIAL.NEB. NEB ONE (09:12)
[2024-01-24 09:18] LABS: BASO % 0.5 % (0-2.0); EOS % 0.8 % (0-4.5); HEMATOCRIT 38.2 % (32.4-45.2); HEMOGLOBIN 12.7 GM/dL (10.7-15.3); LYMPH % 9.8 % (8-40); MCH 31.3 pg (25.7-33.7); MCHC 33.2 g/dl (32.0-36.0); MEAN CELL VOLUME 94.3 fl (80-96); MEAN PLT VOLUME 7.4 fl (7.5-11.1); MONO % 12.9 % (3.8-10.2); PLATELET COUNT 212 10^3/uL (134-434); RBC 4.05 M/mm3 (3.60-5.2); RDW 13.2 % (11.6-15.6); WHITE BLOOD COUNT 10.1 K/mm3 (4.0-10.0)
[2024-01-24] MEDS: ALBUTEROL SO4 2.5/IPRATROPIUM 0.5 INH SOL 3 ML VIAL.NEB. NEB ONE (09:22)
[2024-01-24 09:42] LABS: POTASSIUM 4.2 mmol/L (3.5-5.1)
[2024-01-24 09:45] LABS: BLOOD UREA NITROGEN 6.9 mg/dL (7-18); CALCIUM 9.5 mg/dL (8.5-10.1); MAGNESIUM 1.9 mg/dL (1.8-2.4)
[2024-01-24 09:48] LABS: CREATININE 0.6 mg/dL (0.55-1.3)
[2024-01-24 09:50] LABS: BILIRUBIN,TOTAL 1.1 mg/dL (0.2-1)
[2024-01-24] MEDS ORDERED: dilTIAZem HCL 30 MG TABLET ONE (10:34)
[2024-01-24] MEDS: SODIUM CHLORIDE 500 ML IV STA (10:41)
[2024-01-24] MEDS: dilTIAZem HCL 30 MG TABLET PO ONE (10:41)
[2024-01-24] MEDS ORDERED: ACETAMINOPHEN 325 MG TABLET (FP) PO PRN (14:39)
[2024-01-24 14:48] VITALS: BMI 29.1
[2024-01-24] MEDS: ACETAMINOPHEN 1000 MG/100 ML BAG IVPB ONE (14:59)
[2024-01-24] MEDS: PANTOPRAZOLE 40 MG TABLET PO SCH (15:01)
[2024-01-24] MEDS: APIXABAN 5 MG TABLET PO SCH (21:23)
[2024-01-24] MEDS: MONTELUKAST NA 10 MG TABLET PO SCH (21:23)
[2024-01-24] MEDS: BUDESONIDE/FORMETEROL FUMARATE 160/4.5 mcg INHALER IH SCH (21:54)
[2024-01-24] MEDS ORDERED: BUDESONIDE/FORMETEROL FUMARATE 160/4.5 mcg INHALER IH SCH (22:00)
[2024-01-25] MEDS: ALBUTEROL SO4 2.5/IPRATROPIUM 0.5 INH SOL 3 ML VIAL.NEB. NEB PRN (05:14)
[2024-01-25] MEDS ORDERED: metoPROLOL SUCCINATE 25 MG TAB.SR.24H (FP) PO SCH (10:00)
[2024-01-25] MEDS: LOSARTAN POTASSIUM 50 MG TABLET PO SCH (10:07)
[2024-01-25] MEDS: FOLIC ACID 1 MG TABLET (FP) PO SCH (10:07)
[2024-01-25] MEDS: POLYETHYLENE GLYCOL (HEALTHYLAX) 3350 17 GM PACKET PO SCH (10:08)
[2024-01-25] MEDS: methylPREDNISolone NA SUCC 40 MG/1 ML VIAL IVPUSH SCH (11:51)
[2024-01-25] MEDS: ALBUTEROL SO4 2.5/IPRATROPIUM 0.5 INH SOL 3 ML VIAL.NEB. NEB SCH (12:10)
[2024-01-27] MEDS: FLUTICASONE PROP 0.05% 16 GM NASAL SPRAY NS SCH (10:21)
[2024-01-27 11:43] LABS: BASO % 0.1 % (0-2.0); HEMOGLOBIN 12.6 GM/dL (10.7-15.3); LYMPH % 5.7 % (8-40); MCH 31.7 pg (25.7-33.7); MEAN CELL VOLUME 93.1 fl (80-96); MONO % 9.1 % (3.8-10.2); NEUT % 85.1 % (42.8-82.8); PLATELET COUNT 315 10^3/uL (134-434); RBC 3.97 M/mm3 (3.60-5.2); RDW 13.3 % (11.6-15.6); WHITE BLOOD COUNT 8.3 K/mm3 (4.0-10.0)
[2024-01-27 12:05] LABS: POTASSIUM 4.7 mmol/L (3.5-5.1)
[2024-01-27 12:06] LABS: CALCIUM 9.7 mg/dL (8.5-10.1)
[2024-01-27 12:07] LABS: BLOOD UREA NITROGEN 20.2 mg/dL (7-18)
[2024-01-27 12:10] LABS: CREATININE 0.8 mg/dL (0.55-1.3)
[2024-01-27] MEDS: LACTOBACILLUS ACIDOPHILUS 1 TABLET PO SCH (15:12)
[2024-01-28] MEDS ORDERED: PIPERACILLIN/TAZOB 3.375 GM 3.375 GM in DEXTROSE 5%-WATER - 50 ML IVPB SCH (07:45)
[2024-01-28] MEDS: ALBUTEROL SO4 0.083% IH SOL 2.5 MG/3 ML VIAL.NEB. NEB PRN (10:38)
[2024-01-28] MEDS: TIOTROPIUM BROMIDE 2.5 MCG (SPIRIVA) RESPIMAT INHALER IH SCH (10:59)
[2024-01-28] MEDS: PIPERACILLIN/TAZOB 3.375 GM 3.375 GM in DEXTROSE 5%-WATER - 50 ML IVPB SCH ×2 (11:23→18:51)
[2024-01-28] MEDS ORDERED: FUROSEMIDE 40 MG/4 ML INJECTABLE VIAL IVPUSH ONE (13:59)
[2024-01-28] MEDS: FUROSEMIDE 40 MG/4 ML INJECTABLE VIAL IVPUSH ONE (18:52)
[2024-01-28] MEDS: LACTOBACILLUS ACIDOPHILUS 1 TABLET PO SCH (21:11)
[2024-01-29 08:05] LABS: EOS % 0.4 % (0-4.5); HEMATOCRIT 42.6 % (32.4-45.2); HEMOGLOBIN 14.1 GM/dL (10.7-15.3); LYMPH % 23.7 % (8-40); MCHC 33.2 g/dl (32.0-36.0); MEAN CELL VOLUME 93.5 fl (80-96); MEAN PLT VOLUME 7.6 fl (7.5-11.1); MONO % 12.7 % (3.8-10.2); NEUT % 63.2 % (42.8-82.8); PLATELET COUNT 341 10^3/uL (134-434); RBC 4.55 M/mm3 (3.60-5.2); WHITE BLOOD COUNT 9.2 K/mm3 (4.0-10.0)
[2024-01-29 08:12] LABS: POTASSIUM 4.1 mmol/L (3.5-5.1)
[2024-01-29 08:16] LABS: ALBUMIN 3.2 g/dl (3.4-5.0)
[2024-01-29 08:18] LABS: BLOOD UREA NITROGEN 23.6 mg/dL (7-18); CALCIUM 10.2 mg/dL (8.5-10.1)
[2024-01-29 08:21] LABS: BILIRUBIN,TOTAL 0.4 mg/dL (0.2-1); CREATININE 0.9 mg/dL (0.55-1.3)
[2024-01-29 08:23] LABS: TOT PROT 6.2 g/dl (6.4-8.2)
[2024-01-29] MEDS: methylPREDNISolone NA SUCC 40 MG/1 ML VIAL IVPUSH SCH (09:42)
[2024-01-29] MEDS ORDERED: methylPREDNISolone NA SUCC 40 MG/1 ML VIAL IVPUSH SCH (10:00)
[2024-01-29] MEDS: ONDANSETRON 4 MG/2 ML VIAL IVPUSH PRN (15:46)
[2024-01-29] MEDS: MELATONIN 5 MG TABLETS PO PRN (22:16)
[2024-01-30 09:51] LABS: POTASSIUM 4.7 mmol/L (3.5-5.1)
[2024-01-30 09:53] LABS: CALCIUM 10.5 mg/dL (8.5-10.1)
[2024-01-30 09:54] LABS: BLOOD UREA NITROGEN 24.6 mg/dL (7-18); RDW 13.5 % (11.6-15.6)
[2024-01-30 09:57] LABS: CREATININE 0.9 mg/dL (0.55-1.3)
[2024-01-30 10:05] LABS: HEMATOCRIT 46.2 % (32.4-45.2); HEMOGLOBIN 15.1 GM/dL (10.7-15.3); MCH 31.1 pg (25.7-33.7); MCHC 32.7 g/dl (32.0-36.0); MEAN PLT VOLUME 7.9 fl (7.5-11.1); PLATELET COUNT 363 10^3/uL (134-434); RBC 4.86 M/mm3 (3.60-5.2); WHITE BLOOD COUNT 10.2 K/mm3 (4.0-10.0)
[2024-01-30] MEDS: MULTIVITAMINS (DAILY MVI) TABLET (FP) PO SCH (14:20)
[2024-01-31 07:05] LABS: POTASSIUM 4.2 mmol/L (3.5-5.1)
[2024-01-31 07:11] LABS: BLOOD UREA NITROGEN 27.4 mg/dL (7-18)
[2024-01-31 07:15] LABS: CREATININE 0.9 mg/dL (0.55-1.3)
[2024-01-31 07:28] LABS: HEMATOCRIT 42.2 % (32.4-45.2); HEMOGLOBIN 13.9 GM/dL (10.7-15.3); MCH 30.9 pg (25.7-33.7); MEAN CELL VOLUME 93.8 fl (80-96); MEAN PLT VOLUME 7.5 fl (7.5-11.1); PLATELET COUNT 375 10^3/uL (134-434); RDW 13.4 % (11.6-15.6); WHITE BLOOD COUNT 11.9 K/mm3 (4.0-10.0)
[2024-01-31] MEDS ORDERED: METHOCARBAMOL 500 MG TABLET PO PRN (08:40)
[2024-01-31 15:32] VITALS: RESP 18
[2024-01-31] MEDS: AMOX TR/POT CLAV 875MG/125MG TABLETS (FP) PO SCH (18:03)
[2024-02-01 06:55] LABS: HEMATOCRIT 42.2 % (32.4-45.2); MCHC 33.1 g/dl (32.0-36.0); MEAN CELL VOLUME 93.6 fl (80-96); MEAN PLT VOLUME 7.7 fl (7.5-11.1); PLATELET COUNT 409 10^3/uL (134-434); RBC 4.51 M/mm3 (3.60-5.2); RDW 13.2 % (11.6-15.6); WHITE BLOOD COUNT 11.9 K/mm3 (4.0-10.0)
[2024-02-01 07:02] LABS: POTASSIUM 4.3 mmol/L (3.5-5.1)
[2024-02-01 07:05] LABS: CALCIUM 9.6 mg/dL (8.5-10.1)
[2024-02-01 07:08] LABS: CREATININE 0.7 mg/dL (0.55-1.3)
[2024-02-01] MEDS: methylPREDNISolone NA SUCC 40 MG/1 ML VIAL IVPUSH SCH (09:02)
[2024-02-02] MEDS ORDERED: predniSONE 20 MG TABLET (UD) PO SCH (10:30)
[2024-02-02 11:51] VITALS: BP 108/70; PULSE 76; TEMP 97.9
== END 2024-02-02 11:45 | DRG 190 ==
LOC: JER 08:16 → JERBED 12:11 → J4S 14:13 → OBSVTOIN 14:13
PROVIDERS: ADMIT Internal Medicine; ATTEND Internal Medicine
DX: J44.0 Chronic obstructive pulmonary disease with (acute) lower respiratory infection (principal); J18.9 Pneumonia, unspecified organism; I48.92 Unspecified atrial flutter; E87.1 Hypo-osmolality and hyponatremia; J98.11 Atelectasis; J45.901 Unspecified asthma with (acute) exacerbation; I10 Essential (primary) hypertension; I48.91 Unspecified atrial fibrillation; E78.5 Hyperlipidemia, unspecified; M62.838 Other muscle spasm; E11.65 Type 2 diabetes mellitus with hyperglycemia
CPT/HCPCS: 0241U-QW; 36415; 71045-TC-FY; 71250-TC; 80048; 80053; 82962; 83605; 83735; 84484; 85025; 85027; 85379; 93005; 93010; 94640; 94761; 97116-GP; 97161-GP; 99285-25; G0378; J0131

== ENCOUNTER 2024-02-21 21:32 | Inpatient (IN) | payer OTHER, BC ==
[2024-02-21 22:41] LABS: BASO % 0.5 % (0-2.0); EOS % 2.2 % (0-4.5); HEMATOCRIT 37.7 % (32.4-45.2); HEMOGLOBIN 12.6 GM/dL (10.7-15.3); LYMPH % 24.4 % (8-40); MCHC 33.3 g/dl (32.0-36.0); MEAN CELL VOLUME 93.1 fl (80-96); MEAN PLT VOLUME 7.4 fl (7.5-11.1); MONO % 12.9 % (3.8-10.2); PLATELET COUNT 273 10^3/uL (134-434); RBC 4.05 M/mm3 (3.60-5.2); RDW 14.8 % (11.6-15.6)
[2024-02-21 22:43] LABS: PH,URINE 5.5 (5.0-8.0); URINE APPEARANCE CLEAR; URINE BILIRUBIN NEGATIVE (NEGATIVE); URINE COLOR YELLOW; URINE GLUCOSE (UA) NEGATIVE (NEGATIVE); URINE KETONE NEGATIVE (NEGATIVE); URINE LEUK ESTERASE NEGATIVE (NEGATIVE); URINE NITRITE NEGATIVE (NEGATIVE); URINE PROTEIN NEGATIVE (NEGATIVE); URINE UROBILINOGEN 0.2 mg/dL (0.2-1.0)
[2024-02-21 22:47] LABS: INR 1.11 (0.83-1.09); PROTHROMBIN TIME (PATIENT) 12.5 SEC (9.7-13.0)
[2024-02-21 22:50] LABS: ACTIVATED PTT 34.9 SECONDS (25.2-36.5)
[2024-02-21 23:22] LABS: ALBUMIN 3.1 g/dl (3.4-5.0); BILIRUBIN,TOTAL 0.7 mg/dL (0.2-1); BLOOD UREA NITROGEN 10.4 mg/dL (7-18); CALCIUM 9.7 mg/dL (8.5-10.1); CREATININE 0.7 mg/dL (0.55-1.3); MAGNESIUM 1.9 mg/dL (1.8-2.4); N-TERMINAL BNP 1618.6 pg/ml (5-450); POTASSIUM 4.3 mmol/L (3.5-5.1)
[2024-02-21] MEDS ORDERED: FUROSEMIDE 40 MG/4 ML INJECTABLE VIAL ONE (23:43)
[2024-02-21] MEDS: FUROSEMIDE 40 MG/4 ML INJECTABLE VIAL IVPUSH ONE (23:51)
[2024-02-22] MEDS ORDERED: FUROSEMIDE 40 MG/4 ML INJECTABLE VIAL ONE (05:58)
[2024-02-22] MEDS: FUROSEMIDE 40 MG/4 ML INJECTABLE VIAL IVPUSH SCH (06:05)
[2024-02-22 07:43] LABS: POTASSIUM 4.1 mmol/L (3.5-5.1)
[2024-02-22 07:51] LABS: BLOOD UREA NITROGEN 10.9 mg/dL (7-18); CALCIUM 10.3 mg/dL (8.5-10.1); MAGNESIUM 1.9 mg/dL (1.8-2.4)
[2024-02-22 07:55] LABS: CREATININE 0.8 mg/dL (0.55-1.3)
[2024-02-22 08:07] LABS: HEMATOCRIT 40.5 % (32.4-45.2); HEMOGLOBIN 13.6 GM/dL (10.7-15.3); MCH 31.2 pg (25.7-33.7); MCHC 33.5 g/dl (32.0-36.0); MEAN CELL VOLUME 93.1 fl (80-96); MEAN PLT VOLUME 7.6 fl (7.5-11.1); PLATELET COUNT 291 10^3/uL (134-434); RBC 4.35 M/mm3 (3.60-5.2)
[2024-02-22] MEDS ORDERED: ALBUTEROL SO4 HFA INHALER IH ONE (08:35)
[2024-02-22] MEDS ORDERED: HYOSCYAMINE SULFATE 0.125 MG *ODT SL PRN (08:51)
[2024-02-22] MEDS ORDERED: APIXABAN 5 MG TABLET ONE (12:12)
[2024-02-22] MEDS ORDERED: amLODIPine BESYLATE 5 MG TABLET (FP) ONE (12:12)
[2024-02-22] MEDS ORDERED: PANTOPRAZOLE 40 MG TABLET PO ONE (12:12)
[2024-02-22] MEDS ORDERED: LOSARTAN POTASSIUM 50 MG TABLET ONE (12:13)
[2024-02-22] MEDS: APIXABAN 5 MG TABLET PO SCH (12:19)
[2024-02-22] MEDS: PANTOPRAZOLE 40 MG TABLET PO SCH (12:19)
[2024-02-22] MEDS: LOSARTAN POTASSIUM 50 MG TABLET PO SCH (12:19)
[2024-02-22] MEDS: amLODIPine BESYLATE 5 MG TABLET (FP) PO SCH (12:19)
[2024-02-22] MEDS: TIOTROPIUM BROMIDE 2.5 MCG (SPIRIVA) RESPIMAT INHALER IH SCH (14:35)
[2024-02-22] MEDS: ALBUTEROL SO4 HFA INHALER IH PRN (14:35)
[2024-02-22] MEDS: FLUTICASONE PROP 0.05% 16 GM NASAL SPRAY NS SCH (17:43)
[2024-02-22 18:07] VITALS: BMI 29.2
[2024-02-22] MEDS: LEVALBUTEROL HCL 0.63 MG/3 ML VIAL.NEB. IH SCH (20:45)
[2024-02-22] MEDS: BUDESONIDE/FORMETEROL FUMARATE 80/4.5 mcg INHALER IH SCH (21:58)
[2024-02-23 07:11] LABS: BASO % 0.7 % (0-2.0); EOS % 2.5 % (0-4.5); HEMATOCRIT 39.3 % (32.4-45.2); HEMOGLOBIN 13.4 GM/dL (10.7-15.3); LYMPH % 25.4 % (8-40); MCH 31.9 pg (25.7-33.7); MEAN CELL VOLUME 93.8 fl (80-96); MEAN PLT VOLUME 7.4 fl (7.5-11.1); MONO % 12.4 % (3.8-10.2); PLATELET COUNT 267 10^3/uL (134-434); RDW 14.7 % (11.6-15.6); WHITE BLOOD COUNT 6.8 K/mm3 (4.0-10.0)
[2024-02-23 07:34] LABS: POTASSIUM 4.6 mmol/L (3.5-5.1)
[2024-02-23 07:43] LABS: CALCIUM 10.2 mg/dL (8.5-10.1)
[2024-02-23 07:44] LABS: ALBUMIN 2.9 g/dl (3.4-5.0); BLOOD UREA NITROGEN 12.4 mg/dL (7-18); MAGNESIUM 1.9 mg/dL (1.8-2.4)
[2024-02-23 07:47] LABS: CREATININE 0.8 mg/dL (0.55-1.3)
[2024-02-23 07:48] LABS: TOT PROT 5.7 g/dl (6.4-8.2)
[2024-02-23 07:49] LABS: BILIRUBIN,TOTAL 0.8 mg/dL (0.2-1)
[2024-02-23] MEDS: POLYETHYLENE GLYCOL (HEALTHYLAX) 3350 17 GM PACKET PO SCH (22:09)
[2024-02-24 06:50] LABS: HEMATOCRIT 42.2 % (32.4-45.2); HEMOGLOBIN 13.9 GM/dL (10.7-15.3); MCH 30.9 pg (25.7-33.7); MEAN CELL VOLUME 93.6 fl (80-96); MEAN PLT VOLUME 7.7 fl (7.5-11.1); PLATELET COUNT 277 10^3/uL (134-434); RBC 4.51 M/mm3 (3.60-5.2); RDW 14.7 % (11.6-15.6); WHITE BLOOD COUNT 7.4 K/mm3 (4.0-10.0)
[2024-02-24 06:58] LABS: POTASSIUM 3.5 mmol/L (3.5-5.1)
[2024-02-24 07:07] LABS: BLOOD UREA NITROGEN 19.5 mg/dL (7-18); CALCIUM 9.9 mg/dL (8.5-10.1)
[2024-02-24 07:08] LABS: MAGNESIUM 1.8 mg/dL (1.8-2.4)
[2024-02-24 07:10] LABS: CREATININE 0.9 mg/dL (0.55-1.3); PHOSPHOROUS 3.6 mg/dL (2.5-4.9)
[2024-02-24 07:11] LABS: BILIRUBIN,TOTAL 0.6 mg/dL (0.2-1)
[2024-02-24] MEDS: POTASSIUM CHLORIDE ORAL LIQUID 20 MEQ/15 ML PO ONE (10:52)
[2024-02-24] MEDS ORDERED: ONDANSETRON 4 MG/2 ML VIAL ONE (12:10)
[2024-02-24] MEDS: ONDANSETRON 4 MG/2 ML VIAL IVPUSH ONE (12:45)
[2024-02-24] MEDS: SODIUM CHLORIDE 250 ML IV STA (15:15)
[2024-02-24] MEDS: MAGNESIUM SULF 50% (8.12 MEQ/2 ML-1 GM VIAL) IVPB ONE (17:18)
[2024-02-25 06:24] LABS: HEMATOCRIT 41.1 % (32.4-45.2); HEMOGLOBIN 13.5 GM/dL (10.7-15.3); MCH 30.9 pg (25.7-33.7); MCHC 32.7 g/dl (32.0-36.0); MEAN CELL VOLUME 94.6 fl (80-96); MEAN PLT VOLUME 7.4 fl (7.5-11.1); PLATELET COUNT 259 10^3/uL (134-434); RBC 4.35 M/mm3 (3.60-5.2); RDW 14.6 % (11.6-15.6)
[2024-02-25 06:45] LABS: POTASSIUM 4.1 mmol/L (3.5-5.1)
[2024-02-25 06:50] LABS: ALBUMIN 2.9 g/dl (3.4-5.0); BLOOD UREA NITROGEN 19.8 mg/dL (7-18); CALCIUM 9.7 mg/dL (8.5-10.1); MAGNESIUM 2.4 mg/dL (1.8-2.4)
[2024-02-25 06:53] LABS: CREATININE 0.9 mg/dL (0.55-1.3); PHOSPHOROUS 2.9 mg/dL (2.5-4.9)
[2024-02-25 06:55] LABS: BILIRUBIN,TOTAL 0.8 mg/dL (0.2-1); TOT PROT 5.5 g/dl (6.4-8.2)
[2024-02-25] MEDS: FUROSEMIDE 40 MG/4 ML INJECTABLE VIAL IVPUSH SCH (10:51)
[2024-02-25] MEDS: POLYETHYLENE GLYCOL (HEALTHYLAX) 3350 17 GM PACKET PO SCH (10:52)
[2024-02-25] MEDS ORDERED: ONDANSETRON 4 MG/2 ML VIAL ONE (13:31)
[2024-02-25] MEDS ORDERED: METOPROLOL TARTRATE 5 MG/5 ML VIAL ONE (13:31)
[2024-02-25] MEDS: ONDANSETRON 4 MG/2 ML VIAL IVPUSH ONE (13:38)
[2024-02-25] MEDS: METOPROLOL TARTRATE 5 MG/5 ML VIAL IVPUSH ONE (13:38)
[2024-02-26] MEDS: METOPROLOL TARTRATE 5 MG/5 ML VIAL IVPUSH ONE (02:36)
[2024-02-26] MEDS: metoPROLOL SUCCINATE 25 MG TAB.SR.24H (FP) PO ONE (02:53)
[2024-02-26 07:11] LABS: HEMATOCRIT 39.6 % (32.4-45.2); HEMOGLOBIN 13.1 GM/dL (10.7-15.3); MCH 30.9 pg (25.7-33.7); MCHC 33.1 g/dl (32.0-36.0); MEAN CELL VOLUME 93.1 fl (80-96); MEAN PLT VOLUME 7.6 fl (7.5-11.1); PLATELET COUNT 260 10^3/uL (134-434); RBC 4.25 M/mm3 (3.60-5.2); RDW 14.8 % (11.6-15.6); WHITE BLOOD COUNT 7.2 K/mm3 (4.0-10.0)
[2024-02-26 07:34] LABS: POTASSIUM 4.3 mmol/L (3.5-5.1)
[2024-02-26 07:36] LABS: BLOOD UREA NITROGEN 18.4 mg/dL (7-18); CALCIUM 9.7 mg/dL (8.5-10.1); MAGNESIUM 2.2 mg/dL (1.8-2.4)
[2024-02-26 07:39] LABS: CREATININE 0.8 mg/dL (0.55-1.3)
[2024-02-26 07:40] LABS: PHOSPHOROUS 2.4 mg/dL (2.5-4.9)
[2024-02-26] MEDS: NAPH,MB-DB/K PH,MBDB POWDER PACKET PO ONE ×2 (09:20→11:03)
[2024-02-26] MEDS ORDERED: ONDANSETRON 4 MG/2 ML VIAL IVPUSH PRN (19:31)
[2024-02-26] MEDS: ONDANSETRON 4 MG/2 ML VIAL IVPUSH ONE (19:44)
[2024-02-26] MEDS: METOPROLOL TARTRATE 5 MG/5 ML VIAL IVPUSH PRN (21:26)
[2024-02-27 07:41] LABS: POTASSIUM 4.6 mmol/L (3.5-5.1)
[2024-02-27 07:46] LABS: CALCIUM 10.5 mg/dL (8.5-10.1)
[2024-02-27 07:47] LABS: ALBUMIN 3.2 g/dl (3.4-5.0); BLOOD UREA NITROGEN 16.1 mg/dL (7-18); MAGNESIUM 2.3 mg/dL (1.8-2.4)
[2024-02-27 07:50] LABS: CREATININE 0.9 mg/dL (0.55-1.3); PHOSPHOROUS 2.9 mg/dL (2.5-4.9)
[2024-02-27 07:51] LABS: BILIRUBIN,TOTAL 0.7 mg/dL (0.2-1); TOT PROT 6.3 g/dl (6.4-8.2)
[2024-02-27] MEDS: FUROSEMIDE 20 MG TABLET (FP) PO SCH (10:45)
[2024-02-27 14:16] VITALS: BP 115/72; PULSE 76; RESP 20; TEMP 97.3
== END 2024-02-27 17:00 | disposition home or self-care (01) | DRG 291 ==
LOC: JER 21:32 → JERBED 23:31 → OBSVTOIN 02-22 01:03 → J2W 02-22 15:24
PROVIDERS: ADMIT Internal Medicine; ATTEND Internal Medicine
DX: I11.0 Hypertensive heart disease with heart failure (principal); I50.33 Acute on chronic diastolic (congestive) heart failure; I48.92 Unspecified atrial flutter; I48.91 Unspecified atrial fibrillation; Z79.01 Long term (current) use of anticoagulants; J45.909 Unspecified asthma, uncomplicated; E78.5 Hyperlipidemia, unspecified
CPT/HCPCS: 36415; 71045-TC-FY; 80048; 80053; 81003; 83735; 83880; 84100; 84484; 85025; 85027; 85610; 85730; 87086; 87635; 93005; 93010; 93306-TC; 93970-TC; 94761; 97116-GP; 97161-GP; 99285-25; G0378

== ENCOUNTER 2024-03-20 00:31 | Emergency (ER) | payer OTHER, BC ==
[2024-03-20 00:40] VITALS: BP 137/90; PULSE 73; RESP 20; BMI 28.3
[2024-03-20] MEDS: SIMETHICONE 80 MG TAB.CHEW (FP) PO ONE (01:49)
[2024-03-20] MEDS ORDERED: SIMETHICONE 80 MG TAB.CHEW (FP) ONE (01:51)
[2024-03-20 01:59] VITALS: TEMP 97.6
[2024-03-20 02:09] LABS: BASO % 0.8 % (0-2.0); EOS % 1.5 % (0-4.5); HEMATOCRIT 37.7 % (32.4-45.2); HEMOGLOBIN 12.4 GM/dL (10.7-15.3); LYMPH % 23.8 % (8-40); MCH 30.7 pg (25.7-33.7); MCHC 32.8 g/dl (32.0-36.0); MEAN CELL VOLUME 93.4 fl (80-96); MEAN PLT VOLUME 7.6 fl (7.5-11.1); MONO % 12.5 % (3.8-10.2); NEUT % 61.4 % (42.8-82.8); PLATELET COUNT 268 10^3/uL (134-434); RBC 4.04 M/mm3 (3.60-5.2); RDW 14.8 % (11.6-15.6)
[2024-03-20 02:30] LABS: POTASSIUM 3.5 mmol/L (3.5-5.1)
[2024-03-20 02:34] LABS: ALBUMIN 3.3 g/dl (3.4-5.0); BLOOD UREA NITROGEN 18.9 mg/dL (7-18); CALCIUM 10.1 mg/dL (8.5-10.1)
[2024-03-20 02:39] LABS: BILIRUBIN,TOTAL 0.8 mg/dL (0.2-1); TOT PROT 5.7 g/dl (6.4-8.2)
[2024-03-20 02:40] LABS: INR 1.17 (0.83-1.09); PROTHROMBIN TIME (PATIENT) 13.2 SEC (9.7-13.0)
[2024-03-20] MEDS: FUROSEMIDE 40 MG/4 ML INJECTABLE VIAL IVPUSH ONE (06:06)
== END 2024-03-20 05:20 | disposition home or self-care (01) ==
LOC: JER 00:31
DX: R00.2 Palpitations (principal); K59.00 Constipation, unspecified; J44.9 Chronic obstructive pulmonary disease, unspecified; R07.89 Other chest pain; R06.02 Shortness of breath; Z20.822 Contact with and (suspected) exposure to COVID-19
CPT/HCPCS: 36415; 71045-TC-FY; 80053; 84484; 85025; 85610; 85730; 87635; 93005; 93010; 99285-25